=== PATIENT | female | born 1975 | race Caucasian/White ===

== ENCOUNTER 2018-01-19 14:47 | Emergency (ER) | payer OTHER ==
[2018-01-19 14:55] VITALS: BP 166/84
[2018-01-19 15:05] LABS: BASOPHILS % 0.8 (0.0-1.5); EOSINOPHILS % 7.7 % (0.0-6.8); MEAN CORPUSCULAR HEMOGLOBIN 30.2 pg (28.0-34.0); MEAN CORPUSCULAR VOLUME 91.2 fl (80.0-100.0); MONOCYTES % 4.9 % (0.0-11.0); NEUTROPHILS # 3.2 # k/uL (1.4-7.7)
[2018-01-19] MEDS: ONDANSETRON HCL/PF 4 MG/ 2ML VIAL IVP ONE (15:06)
[2018-01-19] MEDS: KETOROLAC TROMETHAMINE 30 MG/1ML VIAL IVP ONE (15:08)
[2018-01-19 15:13] LABS: eGFR (African) > 60; eGFR (Non-African) > 60
[2018-01-19] MEDS: 0.9 % SODIUM CHLORIDE 1,000 ML IV ONE ×2 (15:17→15:18)
[2018-01-19] MEDS: fentaNYL CITRATE/PF 100 MCG/ 2ML AMP ONE (15:18)
[2018-01-19] MEDS: fentaNYL CITRATE/PF 100 MCG/ 2ML AMP IVP ONE (15:18)
--- NOTE | 2018-01-19 16:16 | ED Physician Documentation ---
Abdominal Pain - HISTORIAN Historian: patient - HPI Stated Complaint: R sided abd pain Chief Complaint: Abdominal Pain Onset: days ago (2) Duration: waxing, waning Timing: worse Context: denies: out of country travel, bad food, recent trauma Severity: severe Quality: pain Associated Symptoms: nausea. denies: fever, chills, vomiting, coffee ground emesis, bloody emesis, diarrhea, bloody stools, grossly bloody stools, mucous, sweating, loss of appetite, chest pain, testicular pain, back pain, neck pain Relieved by: nothing Further Comments: yes (42 year old female patient presents with complaint of right lateral abdominal wall pain. States the pain started 2 days ago; has been intermittent; this afternoon became worse, rates pain 10/10. Denies injury or heavy lifting, no hx of renal calculi, denies fever, vomiting or diarrhea. Last BM this morning. Able to eat and drink.) - ROS CONST: no problems GI/: none CVS/RESP: none EYES/ENT: none MS/SKIN/LYMPH: none NEURO/PSYCH: none - SOCIAL HX Smoking History: cigarettes - FAMILY HX Family History: no significant history - PAST HX Past History: other (depression) Surgeries/Procedures: hysterectomy Home Medications: Ambulatory Orders Medication Instructions Recorded Fluoxetine HCl [Prozac] 1 cap PO DAILY 01/19/18 Quetiapine Fumarate [Seroquel] 1 tab PO DAILY 01/19/18 Allergies/Adverse Reactions: Allergies Allergy/AdvReac Type Severity Reaction Status Date / Time No Known Allergies Allergy Verified 01/19/18 14:55 - VITAL SIGNS Vital Signs: Vital Signs Temp Pulse Resp BP Pulse Ox 96.7 F L 86 17 166/84 95 01/19/18 16:25 01/19/18 16:25 01/19/18 16:25 01/19/18 16:25 01/19/18 16:25 - REVIEWED ASSESSMENTS Nursing Assessment Reviewed: Yes Vitals Reviewed: Yes Progress - Progress Progress: lab reviewed; patient continues to c/o 10/10 pain, grimacing, tearful. Will progress with CT abd/pelvis Pain improved after fentanyl IV. Reviewed CT results with patient; will treat cramping with bentyl PO and given 1 time dose of MOM. Patient does not have PCP. List provided. Reviewed signs and symptoms to return to ER for. Patient verbalized understanding. ED Results Lab/Radiology - Lab Results Lab Results: Lab Results 01/19/18 01/19/18 14:55 14:55 WBC 7.11 K/ul K/ul (4.00-12.00) RBC 4.22 M/ul M/ul (3.90-5.20) Hgb 12.8 g/dL g/dL (12.0-16.0) Hct 38.5 % % (34.5-46.5) MCV 91.2 fl fl (80.0-100.0) MCH 30.2 pg pg (28.0-34.0) MCHC 33.2 g/dL g/dL (30.0-36.0) RDW 13.4 % % (11.3-14.3) Plt Count 314 K/mm3 K/mm3 (130-400) Neut % (Auto) 44.4 % % (39.0-79.0) Lymph % (Auto) 40.5 % % (16.0-50.0) Cass % (Auto) 4.9 % % (0.0-11.0) Eos % (Auto) 7.7 % H % (0.0-6.8) Baso % (Auto) 0.8 (0.0-1.5) Neut # (Auto) 3.2 # k/uL # k/uL (1.4-7.7) Lymph # (Auto) 2.9 # k/uL # k/uL (0.6-4.0) Cass # (Auto) 0.4 # k/uL # k/uL (0.0-0.9) Eos # (Auto) 0.5 # k/uL # k/uL (0.0-0.6) Baso # (Auto) 0.1 # k/uL # k/uL (0.0-0.5) Reactive Lymphs % 1.7 % % (0.0-5.0) Reactive Lymphs # 0.1 # k/uL # k/uL (0.0-0.8) Sodium 142 mmol/L mmol/L (136-145) Potassium 4.3 mmol/L mmol/L (3.5-5.1) Chloride 104 mmol/L mmol/L (98-107) Carbon Dioxide 30 mmol/L mmol/L (22-30) BUN 14 mg/dL mg/dL (7-17) Creatinine 0.70 mg/dL mg/dL (0.52-1.04) Estimated Creat Clear 176 Est GFR ( Amer) > 60 (60 - ) Est GFR (Non-Af Amer) > 60 (60 - ) Glucose 103 mg/dL mg/dL (74-106) Calcium 9.8 mg/dL mg/dL (8.4-10.2) Total Bilirubin 0.1 mg/dL L mg/dL (0.2-1.3) AST 19 U/L U/L (15-46) ALT 29 U/L U/L (13-69) Alkaline Phosphatase 75 U/L U/L (38-126) Total Protein 8.0 g/dL g/dL (6.3-8.2) Albumin 4.3 g/dL g/dL (3.5-5.0) - Orders Orders: ED Orders Category Date Time Status Place IV Lock 1T Care 01/19/18 14:[address] ABD & PELVIS W/ CON Stat Exams 01/19/18 Completed CBC/PLATELET/DIFF Stat Lab 01/19/18 14:55 Completed CMP Stat Lab 01/19/18 14:55 Completed UA W/MICRO IF INDICATED Stat Lab 01/19/18 14:55 Ordered 0.9 % Sodium Chloride [Normal Saline] 1,000 ml Med 01/19/18 15:13 Discontinued IV .STK-MED 0.9 % Sodium Chloride [Normal Saline] 1,000 ml Med 01/19/18 15:12 Discontinued IV NOW Dicyclomine HCl [Bentyl] Med 01/19/18 16:12 Discontinued 10 mg IM NOW ONE Dicyclomine HCl [Bentyl] Med 01/19/18 16:21 Discontinued 20 mg PO .STK-MED ONE Ketorolac Tromethamine [Toradol] Med 01/19/18 14:59 Discontinued 30 mg IVP NOW ONE Magnesium Hydroxide [Milk of Magnesia] Med 01/19/18 16:12 Discontinued 2,400 mg PO NOW ONE Ondansetron HCl/Pf [Zofran 4 mg/2 ml] Med 01/19/18 14:59 Discontinued 4 mg IVP NOW ONE fentaNYL CITRATE/PF [Duragesic] Med 01/19/18 15:13 Discontinued 100 mcg .ROUTE .STK-MED ONE fentaNYL CITRATE/PF [Duragesic] Med 01/19/18 15:12 Discontinued 50 mcg IVP NOW ONE Abdominal Pain Physical Exam - Physical Exam General Appearance: moderate distress EENT: eye inspection normal, ENT inspection normal, pharynx normal, no signs of dehydration, MELISSA, no nystagmus, TM's nml RESPIRATORY: no resp distress, chest non-tender, breath sounds normal CVS: reg rate & rhythm, heart sounds normal, equal pulses, no murmur, no gallop , PMI nml, no JVD, no friction rub, 24 ABDOMEN: soft, no organomegaly, no abdominal bruit, no distension, tenderness ( RUQ; positive Birch's), decreased BS, rebound, guarding. No: McBurney's point tenderne, distended BACK: normal inspection, no CVA tenderness. No: CVA tenderness (R) SKIN: normal color, warm/dry, NR, INT, PAL, DR EXTREMITIES: non-tender, normal range of motion, no evidence of injury, no edema , J, SALON/SPA MANAGER NEURO: oriented X3, CN's nml as tested, motor nml, sensation nml Vital Signs: Vital Signs Temp Pulse Resp BP Pulse Ox 96.7 F L 86 17 166/84 95 01/19/18 16:25 01/19/18 16:25 01/19/18 16:25 01/19/18 16:25 01/19/18 16:25 Discharge Clincal Impression: Abdominal pain Qualifiers: Abdominal location: right upper quadrant Qualified Code(s): R10.11 - Right upper quadrant pain Additional Instructions: Diet: Clear liquids Sprite/7-up Juices apple, white grape Gatorade/Powerade Jello Popsicles When tolerating clear liquids, advance to bland/brat diet - such as crackers, rice, Bananas, apples/applesauce or toast Return to the emergency department or call your doctor, if you are having severe abdominal pain, fever >101.0, or if there is blood in the vomit or diarrhea, or you cannot keep down liquids or solid food. Fever: Use Tylenol or Ibuprofen as needed per package directions Tylenol 500mg po q4h prn pain Ibuprofen 800mg po TID prn pain - do not take for more than 4 days. Condition: Stable Disposition: HOME, SELF-CARE Decision to Admit: NO Decision Time: 16:17
[2018-01-19] MEDS ORDERED: DICYCLOMINE HCL 20 MG TABLET PO ONE (16:21)
[2018-01-19] MEDS: MAGNESIUM HYDROXIDE 400 MG/5 ML 30ML UDC PO ONE (16:24)
[2018-01-19] MEDS: DICYCLOMINE HCL 10 MG/ML VIAL IM ONE (16:24)
--- NOTE | 2018-01-19 18:21 | Diagnostic Imaging Report ---
AVERY QUILES (OFFICE COPY SELECTOR) - ER [facility] [address] [facility].[address] [address] Report Submission Date: Jan 19, 2018 4:00:31 PM CDT Patient Study Name: HAVEN LEIVA Date: Jan 19, 2018 3:25:34 PM CDT Modality Type: CT\SR Gender: F Description: CT ABD PELVIS W/ CON : 75 Institution: [facility] Physician: AVERY QUILES (BOUBACAR) - ER Examination: CT Abdomen/pelvis History: CT A/P W/ CONTRAST, RUQ/ RT FLANK PAIN SINCE YESTERDAY, WORSEING TODAY (Hx) Comparison exams: None available Technique: CT Abdomen/pelvis with IV protocol. Findings: Liver, spleen, adrenals, pancreas, and kidneys are without gross irregularity. No abnormal enhancement. Gallbladder contracted. No gallstone. No suspicious renal calcifications. Ureters are nondilated in their course through the abdomen and pelvis. No central calcifications. Bladder margin within normal limits. Abdominal aorta without aneurysm. Mild peripheral atherosclerotic disease. Cardiac silhouette is not enlarged. No pericardial effusion. Bowel unopacified limiting evaluation. No abnormal dilation. Stool within the large bowel limiting sensitivity. No mesenteric inflammatory changes or free fluid. Appendix is visualized and is without inflammatory changes. Osseous structures demonstrate degenerative spurring. L5/S1 surgical changes. Lung bases without infiltrate. No effusion. Impression: No abdominal mass or acute inflammatory process. No abnormal bowel dilation or inflammation. Contracted gallbladder. No gallstone. No suspicious renal calcifications or abnormal ureteric dilation. No lung base consolidation or effusion. Electronically signed on Jan 19, 2018 4:00:31 PM CDT by: Alejandro BRYANT
[2018-01-21 06:26] LABS: APPEARANCE,URINE CLEAR (CLEAR); COLOR,URINE YELLOW (YELLOW); OCCULT BLOOD,URINE NEGATIVE (NEGATIVE); PH URINE 5.5 (5.0 - 8.0)
== END 2018-01-19 16:25 | disposition home or self-care (01) ==
LOC: ED 14:47
DX: R10.11 Right upper quadrant pain (principal)
CPT/HCPCS: 74177; 80053; 85025; J0500; J1885; J2405; J3010; J7030; 81002; 96365; 96372; 96375; 99285; Q9967; S1016

== ENCOUNTER 2018-03-03 16:10 | Emergency (ER) | payer OTHER ==
[2018-03-03 16:23] VITALS: BP 147/88
[2018-03-03 16:41] LABS: BASOPHILS % 0.6 (0.0-1.5); MEAN CORPUSCULAR HEMOGLOBIN 30.7 pg (28.0-34.0); MEAN CORPUSCULAR VOLUME 89.6 fl (80.0-100.0); MONOCYTES % 3.7 % (0.0-11.0); NEUTROPHILS # 3.7 # k/uL (1.4-7.7)
[2018-03-03] MEDS: 0.9 % SODIUM CHLORIDE 1,000 ML IV ONE (16:44)
[2018-03-03 17:00] LABS: eGFR (African) > 60; eGFR (Non-African) > 60
--- NOTE | 2018-03-03 17:54 | ED Physician Documentation ---
Syncope/Near Syncope - HISTORIAN Historian: patient - HPI Stated Complaint: DIZZINESS Chief Complaint: Near Syncope Witnessed By: family Position at Time of Episode: standing Symptoms Prior to Episode: light-headed Character of Events(s): almost passed out. denies: lost consciousness, became unresponsive Location of Injury: none Associated Symptoms: feels back to normal Further Comments: yes (42 year old female patient presents to ER with family. Family reports patient was walking outside by the side of road, temperature 90 degrees. Became dizzy, family states she nearly passed out.) - ROS CONST: denies: recent illness EYES/ENT: none GI/: denies: diarrhea, black stools, problems urinating LNMP: denies: , post menopausal, missed periods, heavy periods, abnml bleed, irregualar periods, other MS/SKIN/LYMPH: denies: joint pain, leg swelling, rash, swollen glands, ankle swelling, other NEURO/PSYCH: denies: confusion, anxiety, depression, other - PAST HX Cardiac Disease: none PE Risk Factors: none Other History: Other (bipolar - "not taking her seroquel for months") Allergies/Adverse Reactions: Allergies Allergy/AdvReac Type Severity Reaction Status Date / Time No Known Allergies Allergy Verified 01/19/18 14:55 Home Medications: Ambulatory Orders Medication Instructions Recorded Fluoxetine HCl [Prozac] 1 cap PO DAILY 01/19/18 Promethazine HCl [Phenergan] 25 mg PO Q6H PRN #15 tablet 01/19/18 Quetiapine Fumarate [Seroquel] 1 tab PO DAILY 01/19/18 - SOCIAL HX Smoking History: cigarettes - FAMILY HX Family History: denies: none - VITAL SIGNS Vital Signs: Vital Signs Temp Pulse Resp BP Pulse Ox 97.3 F L 71 24 147/88 97 03/03/18 18:45 03/03/18 18:45 03/03/18 18:45 03/03/18 18:45 03/03/18 18:45 - REVIEWED ASSESSMENTS Nursing Assessment Reviewed: Yes Vitals Reviewed: Yes Progress - Progress Progress: 1L of NS given in ER; patient states she feels better after fluids. Reviewed lab and CT results with patient and family. - EKG/XRAY/CT EKG: rhythm (SR, rate 60, no acute changes. ) ED Results Lab/Radiology - Lab Results Lab Results: Lab Results 03/03/18 03/03/18 03/03/18 16:19 16:18 16:18 WBC 7.10 K/ul K/ul (4.00-12.00) RBC 4.32 M/ul M/ul (3.90-5.20) Hgb 13.3 g/dL g/dL (12.0-16.0) Hct 38.7 % % (34.5-46.5) MCV 89.6 fl fl (80.0-100.0) MCH 30.7 pg pg (28.0-34.0) MCHC 34.2 g/dL g/dL (30.0-36.0) RDW 13.2 % % (11.3-14.3) Plt Count 297 K/mm3 K/mm3 (130-400) Neut % (Auto) 52.8 % % (39.0-79.0) Lymph % (Auto) 36.3 % % (16.0-50.0) Posey % (Auto) 3.7 % % (0.0-11.0) Eos % (Auto) 5.0 % % (0.0-6.8) Baso % (Auto) 0.6 (0.0-1.5) Neut # (Auto) 3.7 # k/uL # k/uL (1.4-7.7) Lymph # (Auto) 2.6 # k/uL # k/uL (0.6-4.0) Posey # (Auto) 0.3 # k/uL # k/uL (0.0-0.9) Eos # (Auto) 0.4 # k/uL # k/uL (0.0-0.6) Baso # (Auto) 0.0 # k/uL # k/uL (0.0-0.5) Reactive Lymphs % 1.6 % % (0.0-5.0) Reactive Lymphs # 0.1 # k/uL # k/uL (0.0-0.8) Sodium 141 mmol/L mmol/L (136-145) Potassium 3.6 mmol/L mmol/L (3.5-5.1) Chloride 104 mmol/L mmol/L (98-107) Carbon Dioxide 26 mmol/L mmol/L (22-30) BUN 16 mg/dL mg/dL (7-17) Creatinine 0.80 mg/dL mg/dL (0.52-1.04) Estimated Creat Clear 169 Est GFR ( Amer) > 60 (60 - ) Est GFR (Non-Af Amer) > 60 (60 - ) Glucose 125 mg/dL H mg/dL (74-106) Calcium 10.1 mg/dL mg/dL (8.4-10.2) Total Bilirubin 0.2 mg/dL mg/dL (0.2-1.3) AST 19 U/L U/L (15-46) ALT 29 U/L U/L (13-69) Alkaline Phosphatase 81 U/L U/L (38-126) Troponin I < 0.03 ng/mL L ng/mL (0.03-0.06) Total Protein 8.5 g/dL H g/dL (6.3-8.2) Albumin 4.5 g/dL g/dL (3.5-5.0) - Radiology Radiology Impressions: HEAD CT WITHOUT CONTRAST HISTORY: Dizziness. Syncopal episode. TECHNIQUE: Axial images were obtained from the skullbase to the vertex without IV contrast. FINDING: The ventricular system is normal in size and configuration. There is normal parenchymal attenuation. There is no positive mass effect or intra/extra -axial hemorrhage. Visualized paranasal sinuses and mastoid air cells are clear. The calvarium is intact. IMPRESSION: NO INTRACRANIAL ABNORMALITY. Electronically signed on Mar 03, 2018 5:46:44 PM CDT by: Shalonda Dejesus - Orders Orders: ED Orders Category Date Time Status Continuous EKG monitoring Q30M Care 03/03/18 16:19 Active Continuous Pulse Oximetry Q30M Care 03/03/18 16:[address] IV Lock 1T Care 03/03/18 16:[address] BRAIN W/O CONTRAST Stat Exams 03/03/18 Completed CBC/PLATELET/DIFF Stat Lab 03/03/18 16:18 Completed CMP Stat Lab 03/03/18 16:18 Completed TROPONIN I (cTnI) Stat Lab 03/03/18 16:19 Completed UA W/MICRO IF INDICATED Stat Lab 03/03/18 16:18 Ordered 0.9 % Sodium Chloride [Normal Saline] 1,000 ml Med 03/03/18 16:19 Discontinued IV NOW EKG WITH COMPARISON Stat Ther 03/03/18 16:18 Ordered Syncope Physical Exam - Physical Exam General Appearance: mild distress EENT: nml eye inspection, PERRL, nml ENT inspection, no apparent trauma, pharynx nml, no CSF leak Respiratory: no resp distress, chest non-tender, breath sounds normal CVS: reg rate & rhythm, heart sounds normal, equal pulses, no murmur, no gallop , PMI nml, no JVD, no friction rub, 24 Abdomen: non-tender, no organomegaly, nml bowel sounds, no distention Skin: normal color, warm/dry, NR, INT, PAL, DR Extremities: non-tender, normal range of motion, no evidence of injury, no edema , J, BUSINESS SERVICES REPRESENTATIVE - Neuro/Psych Higher Functions: alert, oriented x3, no evidence of acute CVA, mood/affect nml Cranial Nerves: nml as tested Cerebellar: nml as tested, nml gait Sensorimotor: nml motor response, nml sensory response, nml reflexes, nml gait Discharge Clincal Impression: Near syncope Referrals: Primary Doctor,No [Primary Care Provider] - 2 Days Condition: Stable Disposition: 01 HOME, SELF-CARE Decision to Admit: NO Decision Time: 18:35
--- NOTE | 2018-03-03 18:59 | Diagnostic Imaging Report ---
AVERY QUILES (LITHOGRAPHIC GENERAL WORKER) - ER [facility] [address] [facility] [address] [address] Report Submission Date: Mar 03, 2018 5:46:44 PM CDT Patient Study Name: HAVEN LEIVA Date: Mar 03, 2018 5:28:09 PM CDT Modality Type: CT\SR Gender: F Description: CT BRAIN W/O CONTRAST : 75 Institution: [facility] Physician: AVERY QUILES (BOUBACAR) - ER HEAD CT WITHOUT CONTRAST HISTORY: Dizziness. Syncopal episode. TECHNIQUE: Axial images were obtained from the skullbase to the vertex without IV contrast. FINDING: The ventricular system is normal in size and configuration. There is normal parenchymal attenuation. There is no positive mass effect or intra/extra -axial hemorrhage. Visualized paranasal sinuses and mastoid air cells are clear. The calvarium is intact. IMPRESSION: NO INTRACRANIAL ABNORMALITY. Electronically signed on Mar 03, 2018 5:46:44 PM CDT by: Shalonda BRYANT
== END 2018-03-03 18:45 | disposition home or self-care (01) ==
LOC: ED 16:10
DX: R55 Syncope and collapse (principal)
CPT/HCPCS: 70450; 80053; 84484; 85025; 93005; J7030; 96365; 99284; S1016

== ENCOUNTER 2018-12-11 14:55 | Emergency (ER) | payer OTHER ==
[2018-12-11] MEDS ORDERED: 0.9 % SODIUM CHLORIDE 1,000 ML IV ONE (15:10)
[2018-12-11] MEDS ORDERED: DOXYCYCLINE 100 MG CAPSULE PO ONE (15:10)
--- NOTE | 2018-12-11 15:17 | ED Physician Documentation ---
General Adult - HISTORIAN Historian: patient - HPI Chief Complaint: General Adult (TICK BITE) Additional Information: Patient is a 43-year-old female who presents to the ER with c/o "not feeling well". She states that her pulled a small tick off her left flank area approx. 2 weeks ago- she noticed redness and swelling a couple of days ago; she has had some diarrhea, headache and myalgia. She denies any nausea or vomiting. She states her last tetanus vaccine was 3 years ago. Onset: days ago (2 weeks ago) Timing: still present, worse Severity: mild, moderate Modifying Factors: Tick bite Quality: Large reddened area Location: Left flank Further Comments: no - ROS CONST: recent illness, chills, other (diarrhea) EYES/ENT: none CVS/RESP: none GI/: abdominal pain (skin sensitivity to the left flank), diarrhea. denies: problems urinating, vomiting, nausea MS/SKIN/LYMPH: neck pain, rash ("bullseye" rash to the left flank) NEURO/PSYCH: headache. denies: difficulty walking, difficulty with speech - PAST HX Past History: none Other History: other (anxiety & depression) Surgeries/Procedures: hysterectomy, other (tonsils, back surgery x 2) Immunizations: tetanus (3 years ago), UTD Allergies/Adverse Reactions: Allergies Allergy/AdvReac Type Severity Reaction Status Date / Time No Known Allergies Allergy Verified 12/11/18 15:14 Home Medications: Ambulatory Orders Medication Instructions Recorded Amitriptyline HCl 10 mg PO HS 12/11/18 Doxycycline [Vibramycin] 100 mg PO BID #20 capsule 12/11/18 Omeprazole 20 mg PO DAILY 12/11/18 - SOCIAL HX Smoking History: less than 1 pack/day Alcohol Use: none Drug Use: marijuana - FAMILY HX Family History: No - VITAL SIGNS Vital Signs: Vital Signs Temp Pulse Resp BP Pulse Ox 147/88 03/03/18 18:45 - REVIEWED ASSESSMENTS Nursing Assessment Reviewed: Yes Vitals Reviewed: Yes Progress - Progress Progress: 15:50 Patient feels much better after IV fluids 1st dose of Doxycycline given in ER ED Results Lab/Radiology - Orders Orders: ED Orders Category Date Time Status Place IV Lock 1T Care 12/11/18 15:09 Ordered DU ABS, IG-SOSA BY LYLA Stat Lab 12/11/18 Ordered CBC/PLATELET/DIFF Stat Lab 12/11/18 15:09 Ordered CMP Stat Lab 12/11/18 15:09 Ordered Doxycycline [Vibramycin] Med 12/11/18 15:10 Once 100 mg PO NOW ONE NORMAL SALINE @ 1000 MLS/HR ( 1000ml BOLUS) Med 12/11/18 15:10 Ordered 0.9 % Sodium Chloride [Normal Saline] 1,000 ml IV Q1H General Adult Physical Exam - PHYSICAL EXAM GENERAL APPEARANCE: mild distress EENT: eye inspection normal, ENT inspection normal, pharynx normal, MELISSA, no nystagmus, TM's nml NECK: normal inspection, thyroid normal, supple RESPIRATORY: no resp distress, breath sounds normal CVS: heart sounds normal, equal pulses ABDOMEN: soft, normal bowel sounds, non-tender BACK: normal inspection SKIN: warm/dry, other (15 cm "bullseye" rash to the left flank) EXTREMITIES: non-tender, normal range of motion, no edema NEURO: oriented X3, CN's nml as tested, motor nml, sensation nml, cognition normal Discharge Clincal Impression: Tick bite of left flank, Erythema migrans (Lyme disease) Prescriptions: Doxycycline [Vibramycin] 100 mg PO BID #20 capsule Referrals: Primary Doctor,No [Primary Care Provider] - 2 Days Additional Instructions: Take Doxycycline 100 mg by mouth twice a day for 10 days Increase fluid intake (no caffeine) Alternate Tylenol and Ibuprofen as needed for fever/discomfort Follow up with PCP in 1-2 weeks for reevaluation Condition: Good Disposition: 01 HOME, SELF-CARE Decision to Admit: NO Decision Time: 16:09
[2018-12-11 15:27] LABS: BASOPHILS % 0.4 % (0.0-1.5); EOSINOPHILS % 4.2 % (0.0-6.8); MONOCYTES % 8.6 % (0.0-11.0); NEUTROPHILS # 2.6 # k/uL (1.4-7.7)
[2018-12-11 15:39] LABS: eGFR (Non-African) > 60
[2018-12-11 16:02] VITALS: BP 126/74
== END 2018-12-11 16:00 | disposition home or self-care (01) ==
LOC: ED 14:55
DX: A69.20 Lyme disease, unspecified (principal); S30.861A Insect bite (nonvenomous) of abdominal wall, initial encounter; W57.XXXA Bitten or stung by nonvenomous insect and other nonvenomous arthropods, initial encounter; Y93.9 Activity, unspecified; Y92.009 Unspecified place in unspecified non-institutional (private) residence as the place of occurrence of the external cause
CPT/HCPCS: 36415; 80053; 85025; 86628; 99283; J7030; S1016

== ENCOUNTER 2019-07-12 18:05 | Emergency (ER) | payer OTHER ==
--- NOTE | 2019-07-12 18:42 | ED Physician Documentation ---
Abscess - HISTORIAN Historian: patient - HPI Chief Complaint: Abscess Additional Information: 43 year old female presents with a couple of small bumps to the right axillary- states she noticed several days ago; states they are very tender. Denies f/c/n/v/d Onset: days ago Timing: still present Duration: persistent since Location: R axillary Quality: painful Identified Cause?: No Where: home Context: Medication Exposure: none Context: Food Exposure: none - ROS CONST: none CVS/RESP: none EYES/ENT: none GI/: none NEURO/PSYCH: none - PAST HX Past History: other (depression and anxiety) Surgeries/Procedures: Yes (hysterectomy, tonsils, back) Immunizations: UTD Allergies/Adverse Reactions: Allergies Allergy/AdvReac Type Severity Reaction Status Date / Time No Known Allergies Allergy Verified 12/11/18 15:14 Home Medications: Ambulatory Orders Medication Instructions Recorded Amitriptyline HCl 10 mg PO HS 12/11/18 Doxycycline [Vibramycin] 100 mg PO BID #20 capsule 12/11/18 Omeprazole 20 mg PO DAILY 12/11/18 - SOCIAL HX Smoking History: greater than 1 pack/day Alcohol Use: none Drug Use: none - FAMILY HX Family History: none - VITAL SIGNS Vital Signs: Vital Signs Temp Pulse Resp BP Pulse Ox 126/74 12/11/18 16:00 Abscess Physical Exam - EXAM General Appearance: alert, mild distress Skin: warm,dry, abscess (very small pink raised areas x 2 to the right axillary), erythema Location: other (right axillary) Character: erythematous Symptoms: tenderness Extremities: non-tender, nml ROM EENT: eyes nml inspection, lips nml, gums nml, pharynx nml Neck: trachea midline, no swelling Respiratory: breath sounds normal CVS: heart sounds nml Neuro/Psych: oriented x3, CN's nml as tested, motor nml, sensation nml, mood/affect nml Discharge Clincal Impression: Abscess of right axilla Referrals: Primary Doctor,No [Primary Care Provider] - 2 Days Additional Instructions: Take Bactrim DS by mouth twice a day for 7 days- called in to [facility] use warm moist heat Do not shave Alternate Tylenol and Ibuprofen as needed Follow up with PCP next week for re-evaluation Condition: Good Disposition: 01 HOME, SELF-CARE Decision to Admit: NO Decision Time: 18:55
[2019-07-12 19:02] VITALS: BP 128/81
== END 2019-07-12 18:51 | disposition home or self-care (01) ==
LOC: ED 18:05
DX: L02.411 Cutaneous abscess of right axilla (principal)
CPT/HCPCS: 99281; 99282